=== PATIENT | male | born 1940 | race Caucasian/White ===

== ENCOUNTER 2019-08-08 11:38 | Emergency (ER) | payer MEDICARE ==
[~2019-08-08] VITALS: Ht 180.3 cm; Wt 69.8 kg
[~2019-08-08 11:38] MED LIST: ASPI81CH; FISH1000; LEVSOD75; MULVITMIND; SIMV10; SOOTHE LUBRICA1 EACH
[2019-08-08 12:26] LABS: BASOPHILS ABSOLUTE AUTO 0.08 K/mm3 (0.00-0.23); BASOPHILS PERCENT AUTO 1 % (0-2); EOSINOPHILS ABSOLUTE AUTO 0.04 K/mm3 (0.00-0.68); EOSINOPHILS PERCENT AUTO 1 % (0-6); Hemoglobin 14.4 g/dL (13.5-17.5); IMMATURE GRAN ABSOLUTE AUTO 0.01 K/mm3 (0.00-0.10); IMMATURE GRAN PERCENT AUTO 0 % (0-1); LYMPHOCYTES ABSOLUTE AUTO 1.86 K/mm3 (0.84-5.20); LYMPHOCYTES PERCENT AUTO 23 % (21-46); MONOCYTES PERCENT AUTO 9 % (4-13); Mean Corpuscular HGB 31.9 pg (26.0-34.0); Mean Corpuscular HGB Conc 33.5 g/dL (31.5-36.5); Mean Corpuscular Volume 95 fL (80-100); NEUTROPHILS ABSOLUTE AUTO 5.48 K/mm3 (1.96-9.15); NEUTROPHILS PERCENT AUTO 67 % (41-73); Platelet Count 264 K/mm3 (150-400); RDW Coefficient Variation 12.2 % (11.7-14.2); RDW Standard Deviation 43.2 fL (35.1-46.3); Red Blood Cell Count 4.52 M/mm3 (4.30-5.90); White Blood Cell Count 8.17 K/mm3 (4.00-11.30)
[2019-08-08 12:47] LABS: Alanine Aminotransfer (ALT/SGP 18 U/L (12-78); Albumin, Blood 3.9 g/dL (3.4-5.0); Albumin/Globulin Ratio 1.1 (0.8-1.8); Alk Phos 85 U/L (50-136); Anion Gap 3 mmol/L (6-16); Aspartate Aminotrans (AST/SGOT 25 U/L (12-37); Bilirubin, Total 0.7 mg/dL (0.1-1.0); Blood Urea Nitrogen 12 mg/dL (8-24); Bun/Creatinine Ratio 15.4 (12.0-20.0); CO2, Blood 28 mmol/L (21-32); Calcium, Blood 8.9 mg/dL (8.5-10.1); Chloride, Blood 107 mmol/L (98-108); Creatinine, Blood 0.78 mg/dL (0.60-1.20); Globulin, Blood 3.7 g/dL (2.2-4.0); Glomerular Filtration Rate >60 (60-); Glucose, Blood 89 mg/dL (70-99); Potassium, Blood 4.1 mmol/L (3.5-5.5); Sodium, Blood 138 mmol/L (136-145); Total Protein, Blood 7.6 g/dL (6.4-8.2)
== END 2019-08-08 15:06 | disposition home or self-care (01) ==
LOC: ER 11:38
PROVIDERS: Emergency Medicine
DX: G45.9 Transient cerebral ischemic attack, unspecified (principal); Z79.899 Other long term (current) drug therapy
CPT/HCPCS: 36415; 70450; 80053; 85025; 93005; 93010; 99284-25

== ENCOUNTER 2024-06-12 10:59 | Emergency (ER) | payer MEDICARE ==
[~2024-06-12] VITALS: Ht 177.8 cm; Wt 72.6 kg
[2024-06-12 11:11] VITALS: BP 164/106
[2024-06-12] MEDS ORDERED: GABA300 PO ×4 (15:38→15:54)
== END 2024-06-12 15:58 | disposition home or self-care (01) ==
LOC: ER 10:59
DX: M48.56XA Collapsed vertebra, not elsewhere classified, lumbar region, initial encounter for fracture (principal); Z79.890 Hormone replacement therapy; Z79.82 Long term (current) use of aspirin; Z79.899 Other long term (current) drug therapy; Z59.89 Other problems related to housing and economic circumstances
CPT/HCPCS: 99283

== ENCOUNTER 2024-07-05 06:29 | Observation (INO) | payer OTHER ==
[2024-07-05] VITALS (9 sets, daily range): BP systolic 123–145; BP diastolic 71–89
[~2024-07-05] VITALS: Ht 177.8 cm; Wt 63.5 kg
[~2024-07-05 06:29] MED LIST changes: +GABA300 PO; -LEVSOD75; +LEVSOD75 PO; -SIMV10; +TAMS.4ER PO; +Zocor20 MG PO
[2024-07-05] MEDS ORDERED: FentaNYL Citrate 50 MCG/ML 2 ML Injection ONE (07:09)
[2024-07-05] MEDS ORDERED: Midazolam HCl 1MG / ML 2ML Vial ONE (07:10)
[2024-07-05] MEDS ORDERED: NAPR500 PO (07:17)
[2024-07-05] MEDS ORDERED: Lidocaine HCl 2% 20 ML MDV ONE (07:35)
[2024-07-05] MEDS ORDERED: Bupivacaine 0.5% HCl 5 MG/ML 30MLVIAL ONE (07:35)
[2024-07-05] MEDS ORDERED: NS 500 ML IV ONE (07:37)
[2024-07-05] MEDS ORDERED: Lactated Ringer's 1,000 ML IV ONE (07:53)
--- NOTE | 2024-07-05 08:00 | NUR ---
NEURO ASSESSMENT PERFORMED. PATIENT WNL BESIDES GENERALIZED WEAKNESS AND RLE WEAKNESS.
[2024-07-05] MEDS ORDERED: Sugammadex Sodium 200 MG/2ML SDV (100 MG/ML) IV ONE (08:05)
[2024-07-05] MEDS ORDERED: Ondansetron HCl 2 MG / ML 2ML Vial ONE (08:28)
[2024-07-05] MEDS ORDERED: Dexamethasone Sod Phos 10 MG/ML 1ML VIAL IV ONE (08:35)
--- NOTE | 2024-07-05 10:28 | NUR ---
PATIENT AWAKE, COVNERSING APPROPRIATELY WITH NEICE AT BEDSIDE. NEURO CHECK PERFORMED, WNL BESIDES GENERALIZED WEAKNESS. VSS ON RA. PATIENT DENYING ANY PAIN.
--- NOTE | 2024-07-05 10:42 | NUR ---
NEURO ASSESSMENT PEROFRMED. WNL, GENERALIZED WEAKNESS AND RLE WEAKNESS NOTED. PATIENT VOIDING WITH URINAL WITHOUT DIFFICULTY. VSS ON RA
[2024-07-05] MEDS ORDERED: Ondansetron HCl 2 MG / ML 2ML Vial IV PRN (10:50)
[2024-07-05] MEDS ORDERED: FLU VACC TS2024-25(6MOS UP)/PF 45 MCG/0.5 ML SYRINGE IM SCH (10:50)
[2024-07-05] MEDS ORDERED: OxyCODONE HCL 5 MG TAB PO PRN (10:50)
[2024-07-05] MEDS ORDERED: Acetaminophen 325 MG TABLET PO PRN (10:50)
[2024-07-05] MEDS ORDERED: FentaNYL Citrate 50 MCG/ML 2 ML Injection IV PRN (10:55)
[2024-07-05] MEDS ORDERED: Naproxen 500 MG Tab PO PRN (10:55)
--- NOTE | 2024-07-05 11:11 | NUR ---
BEDSIDE REPORT GIVEN TO DASH. ALL QUESTIONS WERE ANSWERED. VSS ON RA
[2024-07-05] MEDS ORDERED: LATANOPROST2.5 M3 BOTHEYES (11:27)
--- NOTE | 2024-07-05 12:12 | NUR ---
NURSING PCU NEW PATIENT ASSESSMENT: Assumed care of pt at approx 1100. Arrived from HC lying supine, niece at bedside. Pt a/o, very pleasant, cooperative w/care. Denies any pain/discomfort at rest. Skin pale w/abrasion noted to L knee, excoriation to b/l gluteal folds, redness to coccyx, mepilex in place, b/l spinal/lumbar sites w/gauze and tegederm in place, stable/no bleed/hematoma in place. Neuro check clear w/general weakness noted and reduced stregth in RLE d/t R hip weakness per pt. Tele in place, no c/o CP/pressure, SBP 140's prior to a.m. meds, no noted meds. L/S cta t/o, O2 sat 100% on RA, denies dypsnea, no noted cough. Abd SNT, BT+, voids small amts of urine frequently. PIV x1, s/l. No s/s of acute distress at this time. Position restrictions complete at this time. Pt and family deny any current questions/needs regarding plan of care. training and quality manager at bedside for assessment and education regarding patient request for SNF discharge. D/O reviewed, call light in reach, cont to monitor for changes.
[2024-07-05] MEDS ORDERED: Lidocaine HCl 2% 20 MG/ML 5ML SYR IV ONE (12:13)
[2024-07-05] MEDS ORDERED: Propofol 10mg/ml 20 ml Vial (Procedural) IV ONE (12:13)
[2024-07-05] MEDS ORDERED: Rocuronium Bromide 10 MG/ML 5ML Injection IV ONE (12:13)
[2024-07-05] MEDS ORDERED: ePHEDrine Sulfate 50 MG/ML 1ML Injection IV ONE (12:13)
--- NOTE | 2024-07-05 17:38 | NUR ---
NURSING PCU DAYSHIFT SUMMARY: No significant changes noted t/o the afternoon. Pt sitting up in bed having supper. Denies any procedure related pain/discomfort. Pt appears to be in good spirits and is anticpating good recovery. Optimistic about post procedure physical therapy. Family at bedside, update provided. Denies current needs, call light in reach, cont to monitor until rpt is given to NOC RN.
[2024-07-05] MEDS ORDERED: Latanoprost 0.005% Opth Soln 2.5 ML BOTHEYES SCH (21:00)
[2024-07-05] MEDS ORDERED: Atorvastatin 10 MG Tab PO SCH (21:00)
[2024-07-05] MEDS ORDERED: Docusate Sodium 100 MG Cap PO SCH (21:00)
[2024-07-05] MEDS ORDERED: Sennosides 8.6 MG Tab PO SCH (21:00)
[2024-07-06 00:18] VITALS: BP 136/80
[2024-07-06 03:54] LABS: BASOPHILS ABSOLUTE AUTO 0.01 K/mm3 (0.00-0.23); BASOPHILS PERCENT AUTO 0 % (0-2); EOSINOPHILS PERCENT AUTO 0 % (0-6); Hematocrit 34.7 % (37.0-53.0); Hemoglobin 11.6 g/dL (13.5-17.5); IMMATURE GRAN ABSOLUTE AUTO 0.07 K/mm3 (0.00-0.10); IMMATURE GRAN PERCENT AUTO 1 % (0-1); LYMPHOCYTES ABSOLUTE AUTO 1.03 K/mm3 (0.84-5.20); LYMPHOCYTES PERCENT AUTO 9 % (21-46); MONOCYTES ABSOLUTE AUTO 0.69 K/mm3 (0.16-1.47); MONOCYTES PERCENT AUTO 6 % (4-13); Mean Corpuscular HGB 31.5 pg (26.0-34.0); Mean Corpuscular HGB Conc 33.4 g/dL (31.5-36.5); Mean Corpuscular Volume 94 fL (80-100); Mean Platelet Volume 9.1 fL (9.1-12.4); NEUTROPHILS ABSOLUTE AUTO 10.28 K/mm3 (1.96-9.15); NEUTROPHILS PERCENT AUTO 85 % (41-73); Platelet Count 305 K/mm3 (150-400); RDW Coefficient Variation 13.9 % (11.7-14.2); RDW Standard Deviation 47.8 fL (35.1-46.3); Red Blood Cell Count 3.68 M/mm3 (4.30-5.90); White Blood Cell Count 12.08 K/mm3 (4.00-11.30)
[2024-07-06 04:23] LABS: Bun/Creatinine Ratio 30.9 (12.0-20.0); Calcium, Blood 8.9 mg/dL (8.5-10.1); Creatinine, Blood 0.91 mg/dL (0.60-1.20); Potassium, Blood 4.6 mmol/L (3.5-5.5)
[2024-07-06 04:59] VITALS: BP 138/80
[2024-07-06] MEDS ORDERED: Levothyroxine Sodium 0.05 MG Tab PO SCH (06:00)
[2024-07-06 08:00] VITALS: BP 126/82
[2024-07-06] MEDS ORDERED: Enoxaparin 40 MG/0.4 ML SYR SC SCH (09:00)
[2024-07-06] MEDS ORDERED: Tamsulosin HCl 0.4 MG Cap PO SCH (09:00)
[2024-07-06 12:00] VITALS: BP 130/74
--- NOTE | 2024-07-06 15:52 | NUR ---
REPORT GIVEN TO DIXIE DURAN ON MEDICAL FOR PATIENT TO GO TO ROOM 329.
--- NOTE | 2024-07-06 18:05 | NUR ---
PT ARRIVED TO ROOM 329. ALERT AND ORIENTED X4, WHEEL CHAIR USE FROM BED TO BATHROOM. NO BM YET. NO BENDING, NO TWISTING, NO LIFTING.
[2024-07-06 19:52] VITALS: BP 133/84
[2024-07-07 02:19] VITALS: BP 146/87
--- NOTE | 2024-07-07 04:49 | NUR ---
Pt here for multiple compression fx's, s/p kyphoplasty of L4. Denies pain, independent with bed mobility, up with x1 assist to stand pivot to w/c. Pt VS WNL, voids with urinal at BS, up to BR x2 for BM. To d/c to SNF ([facility] today. Still with spinal percautions.
[2024-07-07 07:39] VITALS: BP 147/88
[2024-07-07] MEDS ORDERED: EUTHYROX50 MCG PO (11:56)
[2024-07-07] MEDS ORDERED: DOCU100 PO (11:58)
[2024-07-07] MEDS ORDERED: Acetaminophen650 M1 PO (11:58)
[2024-07-07] MEDS ORDERED: SENNA LAXATIVE8.6 MG PO (11:59)
[2024-07-07 12:00] LABS: CORONAVIRUS COVID-19 AG Negative (NEGATIVE); INFLUENZA A AG Negative (NEGATIVE); INFLUENZA B AG Negative (NEGATIVE)
--- NOTE | 2024-07-07 14:28 | NUR ---
PT DISCHARGED PT WAS TRANSFERED VIA WHEELCHAIR ACCOMPANIED BY [facility] AND FAMILY. BELONGONGS RELEASED TO THE FAMILY.
--- NOTE | 2024-07-07 14:51 | NUR ---
PT WAS DISCHARGED TO REHAB FACILITY. I GAVE REPORT TO JAGRUTI DURAN. NURSE HAD NO QUESTIONS OR CONBCENRS AND PT HAD NO QUESTIONS OR CONCERS. ALL PIV'S REMOVED
== END 2024-07-07 14:26 ==
LOC: MHTC 06:29 → PCU 06:29 → MHTC 06:30 → PCU 10:58 → MHTC 07-06 17:45 → MEDS 07-06 17:46
PROVIDERS: Internal Medicine; ADMIT Student in an Organized Health Care Education/Training Program
DX: S32.040A Wedge compression fracture of fourth lumbar vertebra, initial encounter for closed fracture (principal); E03.9 Hypothyroidism, unspecified; E78.5 Hyperlipidemia, unspecified; R29.6 Repeated falls; Z79.890 Hormone replacement therapy; Z79.899 Other long term (current) drug therapy
CPT/HCPCS: 22514; 36415; 80048; 85025; 87428-QW; 97110; 97162; 97165; 97530; 97535; A9270; J1100; J1650; J2003; J2250; J2405; J2704; J3010; J7040; J7120

== ENCOUNTER 2024-09-28 06:28 | Day surgery (SDC) | payer OTHER ==
[~2024-09-28] VITALS: Ht 177.8 cm; Wt 66.2 kg
[2024-09-28] VITALS (10 sets, daily range): BP systolic 133–150; BP diastolic 73–98
[~2024-09-28 06:28] MED LIST changes: +Acetaminophen650 M1 PO; +Calcium Acetat667 MG PO; +DOCU100 PO; +EUTHYROX50 MCG PO; +LATANOPROST2.5 M3 BOTHEYES; +LEVSOD25; +NAPR500 PO; +SENNA LAXATIVE8.6 MG PO; +THERA-D2000 UNIT PO
[2024-09-28] MEDS ORDERED: Lidocaine HCl 2% 20 ML MDV ONE (06:57)
[2024-09-28] MEDS ORDERED: NS 1,000 ML IV ONE (06:57)
[2024-09-28] MEDS ORDERED: Bupivacaine 0.5% HCl 5 MG/ML 30MLVIAL ONE (06:57)
[2024-09-28] MEDS ORDERED: Lactated Ringer's 1,000 ML IV ONE ×2 (07:31→09:13)
[2024-09-28] MEDS ORDERED: Heparin Sodium 1000 Units/ML 10ML MDV ONE (07:35)
[2024-09-28] MEDS ORDERED: CeFAZolin Sodium 2,000 MG VIAL ONE (08:14)
[2024-09-28] MEDS ORDERED: NS 100 ML IV ONE (08:15)
[2024-09-28] MEDS ORDERED: Ondansetron HCl 2 MG / ML 2ML Vial ONE (09:02)
[2024-09-28] MEDS ORDERED: Dexamethasone Sod Phos 10 MG/ML 1ML VIAL IV ONE (09:05)
--- NOTE | 2024-09-28 10:00 | NUR ---
PT TO RECOVERY ROOM AFTER KYPHOPLASTY OF L3 AND L5. PT TOLERATED WELL. VSS. NADN. PT LYING SUPINE. NEURO CHECKS PERFORMED AND INTACT. DENIES PAIN OR NEEDS AT THIS TIME. REPORT FROM ANESTHESIA GIVEN. PT RESING COMFORTABLY. WILL CONTINUE TO MONITOR. CALL LIGHT WITHIN REACH.
--- NOTE | 2024-09-28 10:23 | NUR ---
PT ASSISTED WITH URINAL. APPROX 200CC OF YELLOW URINE OUTPUT. NEURO REMAINS INTACT. WNL. VSS.
--- NOTE | 2024-09-28 10:40 | NUR ---
DR DEAN IN ROOM DISCUSSING PLAN OF CARE. NEURO CHECK WNL. VSS. NADN.
--- NOTE | 2024-09-28 11:45 | NUR ---
PT NEURO CHECK COMPLETE. WNL. DENIES PAIN OR NEEDS. VSS. PT SITTING UP IN BED, EATING BREAKFAST. TOLERATING WELL.
--- NOTE | 2024-09-28 11:52 | NUR ---
PT VERBALIZES UNDERSTANDING WRITTEN AND VERBAL INSTRUCTIONS. DENIES QUESTIONS OR COMMENTS. VSS. NADN. NEURO CHECK WNL.
--- NOTE | 2024-09-28 12:14 | NUR ---
REPORT RECEIVED, DISCUSSED DISCHARGE INSTRUCTIONS WITH PATIENT, FOLLOW UP APPOINTMENT AND RESUMING MEDICATIONS IN ADDITION TO WEIGHT RESTRICTIONS, MOVEMENT LIMITATIONS AND S/SX INFECTION, VERBALIZE UNDERSTANDING. SPOKE WITH JANEYJAMI KOTHARIIE CONCERNED ABOUT RIDE HOME, PER REPORT EARLIER PENDING TRANSPORT, WILL NOTIFY EITHER WAY ABOUT RIDE. VSS, VOIDED 200 ML EARLIER, FINISHED EATING, RESTING AWAITING TRANSPORT OTHERWISE FOR D/C.
--- NOTE | 2024-09-28 12:45 | NUR ---
PT ASSISTED WITH DRESSING SELF, TOLERATES WELL. NEURO REMAIN INCHECK, WNL. PT IV DC'D. CATH INTACT. PRESSURE DSG APPLIED. NO BLEEDING NOTED. PT DC TO HOME VIA WC BY FRIEND.
[2024-09-28] MEDS ORDERED: Rocuronium Bromide 10 MG/ML 5ML Injection IV ONE (14:11)
== END 2024-09-28 13:57 | disposition home or self-care (01) ==
LOC: MHTC 06:28
DX: M80.88XA Other osteoporosis with current pathological fracture, vertebra(e), initial encounter for fracture (principal); Z79.890 Hormone replacement therapy; Z79.899 Other long term (current) drug therapy
CPT/HCPCS: 22514; 22515; C1889; J0690; J1100; J1644; J2405; J7030; J7120